=== PATIENT | male | born 1940 | race Caucasian/White ===

== ENCOUNTER 2017-04-06 09:29 | Outpatient (CLI) | payer MEDICARE, OTHER ==
--- NOTE | 2017-04-06 13:05 | Ultrasound Report ---
BILATERAL LOWER EXTREMITY VENOUS DUPLEX: 04/06/2017 CLINICAL INDICATION: Leg pain. TECHNIQUE: Real-time sonographic vascular imaging was performed by the executive pilot through the lower extremities utilizing both color flow and Doppler spectral analysis. Multiple sales development representative static images were saved for review. FINDINGS: A bilateral lower extremity venous sonogram is performed revealing the common femoral, supe rficial femoral, profunda femoris, and popliteal veins to be adequately visualized without intralumin al defects. There is normal venous compression, augmentation, phasicity, and spontaneity of venous fl ow. In the calf, the visualized more cephalad portions of posterior tibial and peroneal veins are gr ossly compressible, without filling defects. IMPRESSION: NO EVIDENCE OF DEEP VENOUS THROMBOSIS. JOB #: [id number] EXT JOB #:[id number]
--- NOTE | 2017-04-06 14:55 | Ultrasound Report ---
BILATERAL LOWER EXTREMITY ARTERIAL DUPLEX: 04/06/2017 CLINICAL INDICATION: Leg pain. TECHNIQUE: Real-time sonographic vascular imaging was performed by the sleep technologist through the lower extremities utilizing both color-flow and Doppler spectral analysis. Multiple passenger service representative static images were saved for review. RIGHT SIDE SITE PSV WAVEFORM STEN REY -- -- -- MAO -- -- -- RUPAL -- -- -- KAT -- -- -- EIA -- -- -- CENTER LEAD CONSULTANT 92 Triphasic -- PSFA 54 Triphasic -- MSFA 71 Triphasic -- DSFA 53 Triphasic -- PFA 29 Biphasic -- POP 46 Triphasic -- APRIL 63 Triphasic -- TECHNOLOGY APPLICATIONS CONSULTANT 51 Triphasic -- PER 40 Triphasic -- DPA 34 Triphasic -- LEFT SIDE SITE PSV WAVEFORM STEN KAT -- -- -- EIA -- -- -- CENTER LEAD CONSULTANT 76 Triphasic -- PSFA 65 Triphasic -- MSFA 66 Triphasic -- DSFA 52 Triphasic -- PFA 27 Biphasic -- POP 35 Triphasic -- APRIL 46 Triphasic -- TECHNOLOGY APPLICATIONS CONSULTANT 76 Triphasic -- PER 51 Triphasic -- DPA 49 Triphasic -- FINDINGS: Right leg: Waveforms are predominantly triphasic. There is no evidence of a focal velocity increase to suggest a hemodynamically significant stenosis. Left leg: Waveforms are predominantly triphasic. There is no evidence of a focal velocity increase to suggest a hemodynamically significant stenosis. IMPRESSION: NO EVIDENCE OF HEMODYNAMICALLY SIGNIFICANT STENOSIS IN EITHER LEG. [facility]
== END 2017-04-06 09:30 | disposition home or self-care (01) ==
LOC: DI 09:29
PROVIDERS: ATTEND Physician Assistant
DX: M79.661 Pain in right lower leg (principal); M79.605 Pain in left leg
CPT/HCPCS: 93925; 93970

== ENCOUNTER 2018-04-22 13:37 | Emergency (ER) | payer MEDICARE, OTHER ==
[2018-04-22 14:36] LABS: BASOPHILS % (AUTO) 0.7 %; EOSINOPHILS % (AUTO) 0.9 %; HGB - HEMOGLOBIN 16.3 g/dL (14.0-18.0); LYMPHOCYTES # (AUTO) 1.6 10^3/uL (1.5-3.5); LYMPHOCYTES % (AUTO) 30.9 %; MEAN CORPUSCULAR HEMOGLOBIN 33.8 pg (27.0-31.0); MEAN CORPUSCULAR HGB CONC 33.7 g/dL (32.0-36.0); MEAN CORPUSCULAR VOLUME 100.4 fL (80.0-94.0); MEAN PLATELET VOLUME 8.3 fL (7.4-11.4); MONOCYTES # (AUTO) 0.6 10^3/uL (0.0-1.0); MONOCYTES % (AUTO) 11.3 %; NEUTROPHILS % (AUTO) 56.2 %; PLT - PLATELET COUNT 191 10^3/uL (130-450); RED BLOOD COUNT 4.81 10^6/uL (4.70-6.10); RED CELL DISTRIBUTION WIDTH 13.3 % (12.0-15.0); WHITE BLOOD COUNT 5.3 x10^3/uL (4.8-10.8)
[2018-04-22 14:51] LABS: ALBUMIN 4.2 g/dL (3.2-5.5); ALBUMIN/GLOBULIN RATIO 1.2 (1.0-2.2); BILIRUBIN,TOTAL 1.2 mg/dL (0.2-1.0); CALCIUM 9.4 mg/dL (8.5-10.3); CREATININE 1.1 mg/dL (0.6-1.2); TOTAL PROTEIN 7.7 g/dL (6.7-8.2)
--- NOTE | 2018-04-22 15:08 | ED Physician Documentation ---
PD HPI SYNCOPE - Stated complaint Stated Complaint: LOW BP - Chief complaint Chief Complaint: General - History obtained from History obtained from: Patient - History of Present Illness Witnessed: Unwitnessed (he actually did not feel lightheaded, but was noted to have low BP and complained of some back pain since yesterday while golfing.) Preceding symptoms: Other (has some mid back pain, worse with twisting, onset while playing golf yesterday.). No: Headache, Chest pain, Abdominal pain, Nausea / vomiting, Light headed, Generalized weakness Contributing factors: Decreased PO intake (had not had much to drink [place] the afternoon.). No: Recent med change Injury occurred: None Recently seen: Clinic (seen in clinic today and referred to ED due to low BP associated with back pain. Has history of AAA but recent U/S (last 1-2 weeks) showed it at only 3 1/2 cm.) Review of Systems Constitutional: denies: Fever, Chills Nose: denies: Rhinorrhea / runny nose, Congestion Throat: denies: Sore throat Respiratory: denies: Cough GI: denies: Abdominal Pain, Nausea, Vomiting, Diarrhea : denies: Dysuria, Frequency Musculoskeletal: reports: Back pain (gradual onset yesterday playing golf, hurts with twisting.). denies: Extremity pain, Extremity swelling Neurologic: denies: Generalized weakness, Focal weakness, Numbness, Near syncope , Altered mental status, Headache, Head injury Endocrine: denies: Weight loss Immunocompromised: denies: Immunocompromised PD PAST MEDICAL HISTORY - Past Medical History Past Medical History: Yes Cardiovascular: Hypertension, Peripheral Vascular Disease - Present Medications Home Medications: Ambulatory Orders Medication Instructions Recorded Confirmed Aspirin Chewable [[facility] [place] 81 mg PO ONCE 04/22/18 04/22/18 Aspirin] Atenolol/Chlorthalidone 04/22/18 [Atenolol-Chlorthalidone 100-25] Lisinopril 20 mg PO 04/22/18 Lovastatin 10 mg PO 04/22/18 Potassium Chloride 10 meq PO DAILY #10 tablet.er 04/22/18 hydroCHLOROthiazide [Hydrodiuril] 12.5 mg PO DAILY 04/22/18 04/22/18 - Allergies Allergies/Adverse Reactions: Allergies Allergy/AdvReac Type Severity Reaction Status Date / Time Penicillins Allergy Rash Verified 04/22/18 13:45 - Social History Does the pt smoke?: Yes Smoking Status: Current every day smoker PD ED PE NORMAL - Vitals Vital signs reviewed: Yes - General General: Alert and oriented X 3, No acute distress, Well developed/nourished - HEENT HEENT: Pharynx benign - Neck Neck: Supple, no meningeal sign, No adenopathy - Cardiac Cardiac: RRR, No murmur - Respiratory Respiratory: Clear bilaterally - Abdomen Abdomen: Normal bowel sounds, Soft, Non tender, Non distended - Male Male : Deferred - Rectal Rectal: Deferred - Back Back: No CVA TTP, No spinal TTP (some tender parathoracic muscle left side. ) - Derm Derm: Normal color, Warm and dry, No rash - Extremities Extremities: Normal ROM s pain, No edema, No calf tenderness / cord - Neuro Neuro: Alert and oriented X 3, No motor deficit, Normal speech Results - Vitals Vitals: Vital Signs - 24 hr 04/22/18 04/22/18 04/22/18 13:42 15:55 16:59 Temperature 36.7 C Heart Rate 56 L 56 L 56 L Respiratory 18 18 16 Rate Blood Pressure 103/68 106/68 117/65 O2 Saturation 96 95 95 Oxygen O2 Source Room air - Labs Labs: Laboratory Tests 04/22/18 04/22/18 04/22/18 14:05 14:05 14:05 WBC 5.3 RBC 4.81 Hgb 16.3 Hct 48.3 MCV 100.4 H MCH 33.8 H MCHC 33.7 RDW 13.3 Plt Count 191 MPV 8.3 Neut # (Auto) 3.0 Lymph # (Auto) 1.6 Pickett # (Auto) 0.6 Eos # (Auto) 0.0 Baso # (Auto) 0.0 Absolute Nucleated RBC 0.00 Nucleated RBC % 0.0 D-Dimer Sodium 134 L Potassium 3.0 L Chloride 94 L Carbon Dioxide 32 Anion Gap 8.0 BUN 21 H Creatinine 1.1 Estimated GFR (MDRD) 65 L Glucose 94 Calcium 9.4 Total Bilirubin 1.2 H AST 20 ALT 16 Alkaline Phosphatase 42 Troponin I < 0.04 Total Protein 7.7 Albumin 4.2 Globulin 3.5 Albumin/Globulin Ratio 1.2 Lipase 36 04/22/18 14:06 WBC RBC Hgb Hct MCV MCH MCHC RDW Plt Count MPV Neut # (Auto) Lymph # (Auto) Pickett # (Auto) Eos # (Auto) Baso # (Auto) Absolute Nucleated RBC Nucleated RBC % D-Dimer 308.9 H Sodium Potassium Chloride Carbon Dioxide Anion Gap BUN Creatinine Estimated GFR (MDRD) Glucose Calcium Total Bilirubin AST ALT Alkaline Phosphatase Troponin I Total Protein Albumin Globulin Albumin/Globulin Ratio Lipase PD MEDICAL DECISION MAKING - ED course Complexity details: considered differential (he says he developed some back pain while playing golf yesterday. Was outside the afternoon, but did drink some fluids in the evening. Was feeling okay today and went to PCP as follow up appt for U/S tests done the week prior. BP noted to be low. His blood pressure is improved on arrival here at 103/68. He states his baseline blood pressure at home has been about 105-110 systolic. We talked about doing imaging to evaluate for internal bleeding as was the concern of his primary care. I discussed with him likely low clinical probability given his smaller sized aneurysm on ultrasound recently which was only 3-1/2 cm. However that does not preclude some leaking of the vessel. He did feel better with some Tylenol and IV fluids here and his back was feeling better and his blood pressure remains normal. Given this clinically, he opted not to have any imaging done and we shared in this decision.), d/w patient - Sepsis Event Vital Signs: Vital Signs - 24 hr 04/22/18 04/22/18 04/22/18 13:42 15:55 16:59 Temperature 36.7 C Heart Rate 56 L 56 L 56 L Respiratory 18 18 16 Rate Blood Pressure 103/68 106/68 117/65 O2 Saturation 96 95 95 Oxygen O2 Source Room air Departure - Departure Disposition: 01 Home, Self Care Clinical Impression: Transient hypotension, Hypokalemia Medication side effects present Qualifiers: Encounter type: initial encounter Qualified Code(s): T50.905A - Adverse effect of unspecified drugs, medicaments and biological substances, initial encounter Condition: Stable Record reviewed to determine appropriate education?: Yes Follow-Up: Jolene Shipley PA [Primary Care Provider] - Prescriptions: Potassium Chloride 10 meq PO DAILY #10 tablet.er Comments: I think you may have been under hydrated and also your potassium was a little bit low. These can allow for your blood pressure to be lower. Your blood pressure medicines will still be effective and can add to the lowering effect on your blood pressure. For now I would add some potassium supplement for a few days to week. I would hold your lisinopril blood pressure medicine and continue your other ones as usual. Follow-up with Flaquita Shipley regarding her recommendations. Drink adequate fluids. Discharge Date/Time: 04/22/18 16:59
--- NOTE | 2018-04-22 15:30 | XRAY Report ---
Procedure Date: 04/22/2018 Accession Number: [id number] / [id number] Procedure: XR - Chest 2 View X-Ray CPT Code: 47319 FULL RESULT: EXAM: CHEST RADIOGRAPHY EXAM DATE: 04/22/2018 03:10 PM. CLINICAL HISTORY: Low BP. COMPARISON: None. TECHNIQUE: 2 views. FINDINGS: Lungs/Pleura: Hyperexpanded with flattened diaphragm typical for COPD. Localized infiltrate or atelectasis in the mid to posterior lung base on lateral view, difficult to localize in frontal projection, but probably on the right. Lingular atelectasis. No consolidation, effusion, or pneumothorax. Mediastinum: Heart and mediastinal contours are unremarkable. Lobe vessels not distended. Other: Degenerative changes. IMPRESSION: Basilar infiltrate in a patient with underlying COPD. [facility]
[2018-04-22] MEDS ORDERED: SODIUM CHLORIDE 0.9% 1,000 ML IV ONE (15:37)
[2018-04-22] MEDS ORDERED: ACETAMINOPHEN 325 MG TABLET PO STA (15:37)
[2018-04-22] MEDS ORDERED: POTASSIUM BICARB 25 MEQ TABLET PO STA (16:36)
[2018-04-22 17:00] VITALS: BP 117/65
== END 2018-04-22 16:59 | disposition home or self-care (01) ==
LOC: ED 13:37
DX: I95.89 Other hypotension (principal); E87.6 Hypokalemia; T50.905A Adverse effect of unspecified drugs, medicaments and biological substances, initial encounter; I10 Essential (primary) hypertension; I73.9 Peripheral vascular disease, unspecified; F17.200 Nicotine dependence, unspecified, uncomplicated; I71.4 Abdominal aortic aneurysm, without rupture
CPT/HCPCS: 36415; 71046; 80053; 83690; 84484; 85025; 85379; 93005; 96360; 99283; A9270

== ENCOUNTER 2018-06-01 09:39 | Outpatient (CLI) | payer MEDICARE, OTHER ==
--- NOTE | 2018-06-01 10:38 | XRAY Report ---
Procedure Date: 06/01/2018 Accession Number: [id number] / [id number] Procedure: XR - Chest 2 View X-Ray CPT Code: 74370 FULL RESULT: EXAM: Chest 2 View X-Ray DATE: 06/01/2018 10:31 AM CLINICAL HISTORY: PNEUMONIA, UNSPECIFIED ORGANISM COMPARISON: 04/22/2018. TECHNIQUE: 2 views. FINDINGS: Lungs/Pleura: No focal consolidation. Interval development of a trace likely right pleural effusion. No pneumothorax. Increased lung volumes with flattening of diaphragms consistent with emphysema. Mediastinum: Heart and mediastinal contours are unremarkable. Other: None. IMPRESSION: Trace right pleural effusion without consolidation to suggest lobar pneumonia. Emphysema. [facility]
== END 2018-06-01 09:40 | disposition home or self-care (01) ==
LOC: DI 09:39
PROVIDERS: ATTEND Physician Assistant
DX: J90 Pleural effusion, not elsewhere classified (principal); J43.9 Emphysema, unspecified
CPT/HCPCS: 71046